=== PATIENT | male | born 1980 | race African-American/Black ===

== ENCOUNTER 2021-08-23 08:43 | Emergency (ER) | payer SELFPAY ==
[2021-08-23] MEDS ORDERED: Amoxicillin/Potassium Clav 875 MG TAB ONE (09:56)
[2021-08-23] MEDS ORDERED: predniSONE 20 MG TAB ONE (09:56)
== END 2021-08-23 10:05 | disposition home or self-care (01) ==
LOC: BURERS 08:43 → EDBD 08:43 → BURERS 10:05
DX: S80.862A Insect bite (nonvenomous), left lower leg, initial encounter (principal); W57.XXXA Bitten or stung by nonvenomous insect and other nonvenomous arthropods, initial encounter
CPT/HCPCS: 99283; J7512